=== PATIENT | female | born 1995 | race American Indian/Alaskan Native ===

== ENCOUNTER 2018-09-30 09:49 | Emergency (ER) | payer OTHER, MEDICAID ==
[2018-09-30 10:30] LABS: Hematocrit 32.5 % (30.3-42.9); Hemoglobin 10.2 gm/dl (10.1-14.3); Mean Corpuscular HGB Conc 31 % (30-34); Platelet Count 296 K/mm3 (140-440); Red Blood Count 4.68 M/mm3 (3.65-5.03); Red Cell Distribution Width 19.1 % (13.2-15.2)
[2018-09-30 10:40] LABS: Mean Corpuscular Hemoglobin 22 pg (28-32); Mean Corpuscular Volume 70 fl (79-97)
--- NOTE | 2018-09-30 10:52 | Emergency Department Report ---
ED Seizure HPI - General Chief Complaint: Seizure Stated Complaint: SEIZURE Time Seen by Provider: 09/30/18 10:18 Source: patient, family, EMS Mode of arrival: Stretcher Limitations: No Limitations - History of Present Illness Initial Comments: 23-year-old female presents Hospital with possible seizure. Patient apparently has seizures as a child and was on phenobarbital that they resolved and recurred during adult flores. Patient was actively receiving outpatient workup for seizures when she became . She was admitted in June with preecl ampsia and had additional seizure workup but was never started on medication. Patient states that today patient had an episode of feeling pale, nausea, feeling hot, followed by unresponsiveness. Patient was staring with flexion and contraction of arms and legs and mild shaking during episode. Afterwards patient was weak but oriented. No tongue laceration or urinary incontinence provided. Patient has had several similar spells in a future. Sometimes she sees stares and is unresponsive, other time she passes out, and then other times she has stiffening of her muscles. She has had cardiac and neurologic workup including EEG without definitive diagnosis of seizures. Her workup has been p erformed by [place] physicians. Patient received 2 mg of Ativan prior to arrival and reports feeling back to normal although somewhat drowsy. No pain reported. Mother presents a report for MRI of the brain performed on 09/12/2018 showing a stable appearance of a faint signal in the central berenice progression since prior study dated 08/10/2018. Last "seizure" episode was in Jun 2018. PMD/Neuro: [facility] - Related Data Previous Rx's Medication Instructions Recorded Last Taken Type Omeprazole Magnesium [PriLOSEC Otc] 20 mg PO QDAY #30 tablet. 04/07/15 Unknown Rx levETIRAcetam [Keppra TAB] 500 mg PO BID #14 tablet 09/30/18 Unknown Rx Allergies Allergy/AdvReac Type Severity Reaction Status Date / Time Latex, Natural Rubber Allergy Unknown Verified 04/07/15 15:36 ED Review of Systems ROS: Stated complaint: SEIZURE Other details as noted in HPI Comment: All other systems reviewed and negative ED Past Medical Hx - Past Medical History Hx Seizures: Yes Additional medical history: seizures, brain lesion, anemia - Surgical History Additional Surgical History: ear tubes - Social History Smoking Status: Never Smoker Substance Use Type: None - Medications Home Medications: Home Medications Medication Instructions Recorded Confirmed Last Taken Type Omeprazole Magnesium [PriLOSEC Otc] 20 mg PO QDAY #30 tablet. 04/07/15 Unknown Rx levETIRAcetam [Keppra TAB] 500 mg PO BID #14 tablet 09/30/18 Unknown Rx ED Physical Exam - General Limitations: No Limitations - Other Other exam information: General: No limitations, patient is alert in no acute distress Head exam: Atraumatic, normocephalic Eyes exam: Normal appearance, pupils equal reactive to light, extraocular movements intact ENT: Moist mucous membrane, normal oropharynx, no tongue lacerations Neck exam: Normal inspection, full range of motion, no meningismus nontender Respiratory exam: Clear to auscultation bilateral, no wheezes, rales, crackles Cardiovascular: Normal rate and rhythm, normal heart sounds Abdomen: Soft, nondistended, and nontender, with normal bowel sounds, no rebound, or guarding Extremity: Full range of motion normal inspection no deformity Back: Normal Inspection, full range of motion, no tenderness Neurologic: Alert but sleepy, oriented x3, cranial nerves intact, no motor or sensory deficit, [id number] function intact Psychiatric: normal affect, normal mood Skin: Warm, dry, intact ED Course Vital Signs 09/30/18 09/30/18 09/30/18 09:59 10:00 10:07 Temperature 98.2 F Pulse Rate 68 Respiratory 16 Rate Blood Pressure 130/76 O2 Sat by Pulse 98 98 99 Oximetry - Reevaluation(s) Reevaluation #1: 09/30/18 11:32 mom is trying to decide if she wants to start keppra. - Consultations Consultation #1: 09/30/18 11:31 case d/w Dr Torrez with [facility], Will arrange neuro f/u on Tuesday. Ok with Keppra load and script prior to neuro f/u. 09/30/18 11:34 earliest apt is for october 05 ED Medical Decision Making - Lab Data Result diagrams: 09/30/18 10:09/30/18 10:19 Lab Results 09/30/18 09/30/18 09/30/18 Range/Units 10:19 10:19 10:23 WBC 4.4 L (4.5-11.0) K/mm3 RBC 4.68 (3.65-5.03) M/mm3 Hgb 10.2 (10.1-14.3) gm/dl Hct 32.5 (30.3-42.9) % MCV 70 L (79-97) fl MCH 22 L (28-32) pg MCHC 31 (30-34) % RDW 19.1 H (13.2-15.2) % Plt Count 296 (140-440) K/mm3 Sodium 139 (137-145) mmol/L Potassium 4.0 (3.6-5.0) mmol/L Chloride 100.3 (98-107) mmol/L Carbon Dioxide 26 (22-30) mmol/L Anion Gap 17 mmol/L BUN 10 (7-17) mg/dL Creatinine 0.9 (0.7-1.2) mg/dL Estimated GFR > 60 ml/min BUN/Creatinine Ratio 11 % Glucose 90 (65-100) mg/dL POC Glucose (70-105) Calcium 9.1 (8.4-10.2) mg/dL Magnesium 1.80 (1.7-2.3) mg/dL HCG, Qual (Negative) 09/30/18 09/30/18 Range/Units 10:23 10:38 WBC (4.5-11.0) K/mm3 RBC (3.65-5.03) M/mm3 Hgb (10.1-14.3) gm/dl Hct (30.3-42.9) % MCV (79-97) fl MCH (28-32) pg MCHC (30-34) % RDW (13.2-15.2) % Plt Count (140-440) K/mm3 Sodium (137-145) mmol/L Potassium (3.6-5.0) mmol/L Chloride (98-107) mmol/L Carbon Dioxide (22-30) mmol/L Anion Gap mmol/L BUN (7-17) mg/dL Creatinine (0.7-1.2) mg/dL Estimated GFR ml/min BUN/Creatinine Ratio % Glucose (65-100) mg/dL POC Glucose 76 (70-105) Calcium (8.4-10.2) mg/dL Magnesium (1.7-2.3) mg/dL HCG, Qual Negative (Negative) - EKG Data -: EKG Interpreted by Fl (PAc) EKG shows normal: sinus rhythm, axis (qrs -13), QRS complexes (qrsd 96), ST-T waves (no stemi/t inv) Rate: bradycardia (57) - Medical Decision Making Patient's mother is a nurse. She does not want to initiate Keppra in the ED due to drowsiness caused by Ativan but states she is willing to fill the prescription and start it prior to her neurology visit. Patient is drowsy but easily arousable and likely sedated secondary to Her. No signs of hypoxia or respiratory depression. Patient will be discharged to go home with mother with neurology follow-up as discussed with [facility] - Differential Diagnosis pseudoseizures, seizures, arrhythmia, syncope Critical Care Time: No Critical care attestation.: If time is entered above; I have spent that time in minutes in the direct care of this critically ill patient, excluding procedure time. ED Disposition Clinical Impression: Seizure Disposition: DC-01 TO HOME OR SELFCARE Is pt being admited?: No Does the pt Need Aspirin: No Condition: Stable Instructions: Recurrent Seizures Adult (ED) Additional Instructions: Take the medication as prescribed. Follow up with your doctor or the clinic/doctor provided. Return if symptoms worsen as indicated by your discharge instructions Prescriptions: levETIRAcetam [Keppra TAB] 500 mg PO BID #14 tablet Referrals: MD Shea [Other] - 10/05/18 10:30 am Time of Disposition: 11:41
[2018-09-30 10:58] LABS: BUN/Creatinine Ratio 11; Blood Urea Nitrogen 10 mg/dL (7-17); Calcium 9.1 mg/dL (8.4-10.2); Hemolysis Index 2
[2018-09-30 12:09] VITALS: BP 135/88
== END 2018-09-30 12:09 | disposition home or self-care (01) ==
LOC: ED 09:49
DX: R56.9 Unspecified convulsions (principal); R25.1 Tremor, unspecified; R11.0 Nausea; D64.9 Anemia, unspecified; Z91.040 Latex allergy status
CPT/HCPCS: 36415; 80048; 82962; 83735; 84703; 85027; 93005; 93010

== ENCOUNTER 2018-09-30 13:44 | Emergency (ER) | payer OTHER, MEDICAID ==
[2018-09-30] MEDS ORDERED: ZOFRAN IV ONE ×2 (13:56→14:28)
[2018-09-30] MEDS ORDERED: NACL 0.9% 1000 ML 1,000 ML IV ONE ×2 (13:56→16:01)
[2018-09-30] MEDS ORDERED: ZOFRAN ONE (13:58)
--- NOTE | 2018-09-30 14:12 | Emergency Department Report ---
ED Seizure HPI - General Stated Complaint: POSS SEIZURE Time Seen by Provider: 09/30/18 13:56 Source: patient, family Mode of arrival: Stretcher Limitations: No Limitations - History of Present Illness Initial Comments: 23-year-old female with a past medical history "seizure-like activity" presents to the hospital for seizure-like activity. Patient was just seen and evaluated by myself and discharge for seizure activity prior to arrival so the hospital. She received Ativan 2 mg IV. She has had extensive outpatient workup provided by [facility] including EEG which was negative for seizure foci patient has also had a cardiology evaluation without any cause identified for repeated episodes of unresponsiveness, syncope, and seizure-like activity. Patient was offered to start Keppra for seizure prophylaxis which was declined by mother have her, she did accept the IV infusion of the Keppra but a prescription provided. Follow-up appointment was made with neurology for October 06. Mother states when she got home patient had another episode on the couch of leg shaking and body stiffening with alteration in mental status. She was placed in a car and provides a video of her with her eyes open but rolled upward and unresponsiveness. After arrival here patient was placed into a stretcher. She started shaking/tremulousness movement of her right leg and eyes were open but rolled upward. I touched the patient's chest and told her to stop shaking and she purposely grabbed my hand to stop me. Patient finished shaking and vomited. She was not confused or post ictal. She is alert and oriented 3 but complains of generalized weakness. She denied any pain. She has several episodes of vomiting after shaking activity. Mother states that she was vomiting after discharge from the hospital which is similar to her previous seizure-like episodes in the past and also been associated with nausea and vomiting. Reports that there is some mild developmental delay due to anoxic brain injury as a child. Also several family members in the home also with nausea and vomiting. No tongue laceration or urinary incontinence. - Related Data Previous Rx's Medication Instructions Recorded Last Taken Type Omeprazole Magnesium [PriLOSEC Otc] 20 mg PO QDAY #30 tablet. 04/07/15 Unknown Rx levETIRAcetam [Keppra TAB] 500 mg PO BID #14 tablet 09/30/18 Unknown Rx Allergies Allergy/AdvReac Type Severity Reaction Status Date / Time Latex, Natural Rubber Allergy Unknown Verified 04/07/15 15:36 ED Review of Systems ROS: Stated complaint: POSS SEIZURE Other details as noted in HPI Comment: All other systems reviewed and negative ED Past Medical Hx - Past Medical History Hx Seizures: Yes Additional medical history: seizures, brain lesion, anemia - Surgical History Additional Surgical History: ear tubes - Social History Smoking Status: Never Smoker Substance Use Type: None - Medications Home Medications: Home Medications Medication Instructions Recorded Confirmed Last Taken Type Omeprazole Magnesium [PriLOSEC Otc] 20 mg PO QDAY #30 tablet. 04/07/15 Unknown Rx levETIRAcetam [Keppra TAB] 500 mg PO BID #14 tablet 09/30/18 Unknown Rx ED Physical Exam - Other Other exam information: General: No limitations, patient is alert in no acute distress Head exam: Atraumatic, normocephalic Eyes exam: Normal appearance, pupils equal reactive to light, extraocular movements intact ENT: Moist mucous membrane, normal oropharynx Neck exam: Normal inspection, full range of motion, no meningismus nontender Respiratory exam: Clear to auscultation bilateral, no wheezes, rales, crackles Cardiovascular: Normal rate and rhythm, normal heart sounds Abdomen: Soft, nondistended, and nontender, with normal bowel sounds, no rebound, or guarding Extremity: Full range of motion normal inspection no deformity Back: Normal Inspection, full range of motion, no tenderness Neurologic: Alert, oriented x3, cranial nerves intact, no motor or sensory deficit Psychiatric: normal affect, normal mood Skin: Warm, dry, intact ED Course Vital Signs 09/30/18 09/30/18 09/30/18 13:59 14:10 14:21 Temperature 98.2 F Pulse Rate 99 H Respiratory 18 18 Rate Blood Pressure 132/81 132/81 O2 Sat by Pulse 100 100 100 Oximetry 09/30/18 09/30/18 09/30/18 15:01 15:21 15:41 Temperature Pulse Rate Respiratory Rate Blood Pressure 128/57 132/81 132/81 O2 Sat by Pulse 99 100 100 Oximetry 09/30/18 16:01 Temperature Pulse Rate Respiratory Rate Blood Pressure 125/69 O2 Sat by Pulse 99 Oximetry - Consultations Consultation #1: 09/30/18 16:01 Case is rediscussed with Dr. Torrez. She consulted the neurologist recommended a repeat CT head, Although, and follow-up with patient's mental status is back to normal. ED Medical Decision Making - Radiology Data Radiology results: report reviewed PROCEDURE: CT HEAD/BRAIN WO CON TECHNIQUE: Axial imaging was obtained of the brain without contrast using soft tissue and bone algorithms. HISTORY: Headache with nausea and vomiting. DOSE: 1079.29- DLP. COMPARISONS: None available. FINDINGS: Findings Extra-axial spaces: Normal. Intracranial hemorrhage: None. Ventricular system: Normal. Basal cisterns: Normal. Cerebral parenchyma: Normal. Midline shift: None. Cerebellum: Normal. Brainstem: Normal. Calvarium: Normal. Vascular system: Normal. Paranasal sinuses and mastoid air cells: Mild maxillary mucosal thickening. Visualized orbits: Unremarkable. Visualized upper cervical spine: IMPRESSION: No acute intracranial pathology. - Medical Decision Making During ED stay patient did receive Keppra. No further seizure activity. She received Zofran 8 mg by Reglan with IV fluid hydration. Patient continues to have vomiting. Mother states that she has had problems with vomiting for most of her life with unknown cause. She states she has Zofran and Phenergan at home. I offered to recontact [facility] for admission due to persistent vomiting despite ED treatment. Patient does not want to be admitted and transferred to a [facility] at this time. Mother also states she feels comfortable taking the patient home and observing her. Patient will be discharged home. Encouraged to go to [facility] or return to the ER if symptoms worsen. - Differential Diagnosis pseudoseizures, gastritis, intracranial mass, gastroenteritis, cyclic vomit Critical Care Time: No Critical care attestation.: If time is entered above; I have spent that time in minutes in the direct care of this critically ill patient, excluding procedure time. ED Disposition Clinical Impression: Seizure-like activity, Vomiting Disposition: DC-01 TO HOME OR SELFCARE Is pt being admited?: No Does the pt Need Aspirin: No Condition: Stable Instructions: Non-epileptic Seizures (ED), Acute Nausea and Vomiting (ED) Additional Instructions: Take the medication as prescribed. Follow up with your doctor or the clinic/doctor provided. Follow up with the neurology appointment has provided earlier. Return if symptoms worsen as indicated by your discharge instructions Referrals: your, [facility] [Other] - 3-5 Days Time of Disposition: 19:08
[2018-09-30] MEDS ORDERED: PEPCID IV ONE (16:01)
[2018-09-30] MEDS ORDERED: KEPPRA 1,000 MG/NS 0.75% 100ML 1,000 MG/100 ML BAG IV ONE (16:01)
[2018-09-30] MEDS ORDERED: REGLAN IV ONE (17:14)
--- NOTE | 2018-09-30 17:45 | Cat Scan Report ---
PROCEDURE: CT HEAD/BRAIN WO CON TECHNIQUE: Axial imaging was obtained of the brain without contrast using soft tissue and bone algor ithms. HISTORY: Headache with nausea and vomiting. DOSE: 1079.29- DLP. COMPARISONS: None available. FINDINGS: Findings Extra-axial spaces: Normal. Intracranial hemorrhage: None. Ventricular system: Normal. Basal cisterns: Normal. Cerebral parenchyma: Normal. Midline shift: None. Cerebellum: Normal. Brainstem: Normal. Calvarium: Normal. Vascular system: Normal. Paranasal sinuses and mastoid air cells: Mild maxillary mucosal thickening. Visualized orbits: Unremarkable. Visualized upper cervical spine: IMPRESSION: No acute intracranial pathology. This document is electronically signed by Eric Ogden DO., September 30 2018 05:43:10 PM ET
[2018-09-30 18:20] VITALS: BP 125/69
== END 2018-09-30 20:37 | disposition home or self-care (01) ==
LOC: ED 13:44
DX: R56.9 Unspecified convulsions (principal); R11.0 Nausea; Z91.040 Latex allergy status
CPT/HCPCS: 70450; 96361; 96365; 96375; 96376; 99284; J1953; J2405; J2765; J7030